=== PATIENT | male | born 1990 | race Caucasian/White ===

== ENCOUNTER 2021-12-11 01:56 | Emergency (ER) | payer MEDICAID, OTHER ==
[~2021-12-11] VITALS: Ht 188 cm; Wt 95.5 kg
[2021-12-11 01:58] VITALS: BP 144/90
[2021-12-11 02:33] LABS: CLARITY,URINE CLEAR (Clear); GLUCOSE, URINE NEGATIVE (Neg); KETONES,URINE NEGATIVE (Neg); LEUKOCYTE ESTERASE ,URINE NEGATIVE (Neg); NITRITES, URINE NEGATIVE (Neg); OCCULT BLOOD,URINE NEGATIVE (Neg); PROTEIN,URINE NEGATIVE (Neg); UROBILINOGEN,URINE 0.2 E.U/dL (0.2-1.0)
[2021-12-11 02:35] LABS: COLOR,URINE Straw (Yellow); UA COLLECTION TYPE URINAL
[2021-12-11] MEDS ORDERED: normal saline 1000ml 1,000 ML IV ONE ×2 (02:35→03:20)
[2021-12-11 02:43] LABS: URINE AMPHETAMINE SCREEN NEGATIVE (Neg); URINE BARBITUATE SCREEN NEGATIVE (Neg); URINE BENZODIAZEPINES SCREEN NEGATIVE (Neg); URINE CANNABINOID SCREEN NEGATIVE (Neg); URINE COCAINE SCREEN NEGATIVE (Neg); URINE METHADONE SCREEN NEGATIVE (Neg); URINE OPIATE SCREEN NEGATIVE (Neg); URINE PHENCYCLIDINE SCREEN NEGATIVE (Neg)
[2021-12-11 03:01] LABS: BASOPHILS # (AUTO) 0.1 X10'3 (0-0.2); BASOPHILS % (AUTO) 0.9 % (0-1); EOSINOPHILS % (AUTO) 0.1 % (0-6); HEMATOCRIT 42.5 % (42.0-52.0); HEMOGLOBIN 14.5 g/dl (14.0-17.9); LYMPHOCYTES # (AUTO) 2.1 X10'3 (1.1-4.8); LYMPHOCYTES % (AUTO) 14.8 % (21-51); MEAN CORPUSCULAR HEMOGLOBIN 29.1 PG (27.0-31.0); MEAN CORPUSCULAR HGB CONC 34.1 g/dL (33.0-36.5); MEAN CORPUSCULAR VOLUME 85.2 FL (78-98); MONOCYTES # (AUTO) 1.3 X10'3 (0-0.9); MONOCYTES % (AUTO) 9.4 % (2-12); NEUTROPHILS # (AUTO) 10.6 X10'3 (1.8-7.7); NEUTROPHILS % (AUTO) 74.8 % (42-75); PLATELET COUNT 250 X10'3 (140-440); RED BLOOD COUNT 4.99 X10'6 (4.70-6.10); RED CELL DISTRIBUTION WIDTH 12.9 % (11.5-14.5); WHITE BLOOD COUNT 14.2 X10'3 (4.5-11.0)
[2021-12-11 03:12] LABS: ALANINE AMINOTRANSFERASE 112 U/L (12-78); ALBUMIN 4.1 G/DL (3.4-5.0); ALBUMIN/GLOBULIN RATIO 1.1 (1.1-1.5); ALKALINE PHOSPHATASE 69 IU/L (46-116); ANION GAP 12 (8-16); ASPARTATE AMINO TRANSFERASE 42 U/L (10-37); BILIRUBIN,TOTAL 0.5 MG/DL (0.1-1.0); BLOOD UREA NITROGEN 19 MG/DL (7-18); BUN/CREATININE RATIO 12.9 (5.4-32.0); CALCIUM 8.4 MG/DL (8.5-10.1); CHLORIDE 99 MMOL/L (99-107); CREATINE KINASE 527 U/L (39-308); CREATININE 1.47 MG/DL (0.60-1.10); GLUCOSE 136 MG/DL (70-104); MAGNESIUM 1.6 MG/DL (1.5-2.4); SODIUM 135 MMOL/L (135-145); TOTAL CARBON DIOXIDE 23.6 MMOL/L (24-32); TOTAL PROTEIN 7.8 G/DL (6.4-8.2); eGFR 56 ML/MIN
[2021-12-11 03:16] LABS: POTASSIUM 2.9 MMOL/L (3.5-5.1)
[2021-12-11] MEDS ORDERED: potassium Cl 20 mEq SR tablet PO STA (03:19)
[2021-12-11] MEDS ORDERED: POTA-207 PO (04:28)
== END 2021-12-11 05:20 | disposition home or self-care (01) ==
LOC: ER 01:56
DX: T67.5XXA Heat exhaustion, unspecified, initial encounter (principal); R53.1 Weakness; R00.0 Tachycardia, unspecified; Z88.1 Allergy status to other antibiotic agents; Z88.8 Allergy status to other drugs, medicaments and biological substances; Z79.899 Other long term (current) drug therapy; X30.XXXA Exposure to excessive natural heat, initial encounter; Y93.89 Activity, other specified; Y92.89 Other specified places as the place of occurrence of the external cause; Y99.8 Other external cause status
CPT/HCPCS: 36415; 80053; 80305; 81003; 82550; 83735; 84145; 85025; 93005; 96360; 99284; J7030

== ENCOUNTER 2021-12-16 19:13 | Emergency (ER) | payer MEDICARE, OTHER ==
[~2021-12-16] VITALS: Ht 177.8 cm; Wt 79.5 kg
[~2021-12-16 19:13] MED LIST: POTA-207 PO
[2021-12-16 19:20] VITALS: BP 137/79
[2021-12-16] MEDS ORDERED: dexamethasone sod phosphate 10mg/ml inj PO STA (20:32)
[2021-12-16] MEDS ORDERED: PRED20TA PO (20:33)
== END 2021-12-16 20:56 | disposition home or self-care (01) ==
LOC: ER 19:13
DX: L23.7 Allergic contact dermatitis due to plants, except food (principal); Z88.1 Allergy status to other antibiotic agents; Z88.8 Allergy status to other drugs, medicaments and biological substances; Z79.899 Other long term (current) drug therapy
CPT/HCPCS: 99283; J1100

== ENCOUNTER 2022-10-23 11:27 | Emergency (ER) | payer MEDICARE ==
[~2022-10-23] VITALS: Ht 177.8 cm; Wt 75.0 kg
[2022-10-23 11:55] VITALS: BP 126/84
[2022-10-23] MEDS ORDERED: CEPH-585 PO (13:09)
[2022-10-23] MEDS ORDERED: cephalexin 250mg capsule PO ONE (13:10)
[2022-10-23] MEDS ORDERED: bacitracin 15gm ointment TP ONE (13:10)
== END 2022-10-23 13:22 | disposition home or self-care (01) ==
LOC: ER 11:28
DX: L02.213 Cutaneous abscess of chest wall (principal); Z88.0 Allergy status to penicillin; Z88.1 Allergy status to other antibiotic agents
CPT/HCPCS: 10060; 99283; 99284

== ENCOUNTER 2023-08-04 17:25 | Emergency (ER) | payer MEDICARE ==
[~2023-08-04] VITALS: Ht 172.7 cm; Wt 93.0 kg
[~2023-08-04 17:25] MED LIST changes: +CEPH-585 PO; -POTA-207 PO
[2023-08-04 17:47] VITALS: BP 138/82; PULSE 110; RESP 18; TEMP 97.8; O2SAT 98
[2023-08-04] MEDS ORDERED: CEPH-585 PO (18:33)
[2023-08-04] MEDS ORDERED: SULF1TAB49 PO (18:33)
== END 2023-08-04 18:48 | disposition home or self-care (01) ==
LOC: ER 17:27
DX: L03.116 Cellulitis of left lower limb (principal); Z88.1 Allergy status to other antibiotic agents; Z79.899 Other long term (current) drug therapy
CPT/HCPCS: 99283

== ENCOUNTER 2024-02-14 10:08 | Emergency (ER) | payer MEDICARE ==
[~2024-02-14] VITALS: Ht 175.3 cm; Wt 87.1 kg
[2024-02-14 10:16] VITALS: BP 121/79; PULSE 80; RESP 16; TEMP 98; O2SAT 98
[2024-02-14] MEDS ORDERED: NEOM10SO7 RIGHT EAR (11:19)
[2024-02-14] MEDS ORDERED: CEPH-585 PO (11:19)
== END 2024-02-14 11:28 | disposition home or self-care (01) ==
LOC: ER 10:08
DX: H60.8X2 Other otitis externa, left ear (principal); Z88.1 Allergy status to other antibiotic agents; Z79.1 Long term (current) use of non-steroidal anti-inflammatories (NSAID)
CPT/HCPCS: 99283

== ENCOUNTER 2024-02-16 00:26 | Emergency (ER) | payer MEDICARE, MEDICAID ==
[~2024-02-16] VITALS: Ht 172.7 cm; Wt 90.2 kg
[~2024-02-16 00:26] MED LIST changes: +NEOM10SO7 RIGHT EAR
[2024-02-16 00:56] VITALS: BP 140/90; PULSE 68; RESP 18; TEMP 98.6; O2SAT 96
== END 2024-02-16 00:58 | disposition home or self-care (01) ==
LOC: ER 00:27
DX: H60.8X2 Other otitis externa, left ear (principal); Z88.8 Allergy status to other drugs, medicaments and biological substances; Z79.1 Long term (current) use of non-steroidal anti-inflammatories (NSAID)
CPT/HCPCS: 99281

== ENCOUNTER 2024-10-11 16:12 | Emergency (ER) | payer MEDICARE, MEDICAID ==
[~2024-10-11] VITALS: Ht 170.2 cm; Wt 89.0 kg
[~2024-10-11 16:12] MED LIST changes: -CEPH-585 PO
[2024-10-11 16:17] VITALS: BP 147/80; PULSE 102; RESP 17; TEMP 98.2; O2SAT 98
--- NOTE | 2024-10-11 16:26 | Physician Documentation ---
HPI ~ General Chief Complaint: Medication Request Stated Complaint: BLISTER Time Seen by MD: 16:37 Primary Medical Doctor: [facility], DR. ATUL HICKS History of Present Illness HPI Comments This 34-year-old male with history of autism presents with a wound to his right middle toe, patient reports he was seen by [facility] earlier today and given wound care supplies and was told he was being prescribed an antibiotic however he has not picked it up yet, patient reports he was not prescribed anything for pain in his here requesting pain medication. Medication Reconciliation Allergies: Coded Allergies: amoxicillin (Verified Allergy, Unknown, 10/11/24) clavulanic acid (Verified Allergy, Unknown, 10/11/24) Scheduled Ibuprofen (Ibuprofen), 1 TAB PO Q8H Neomy Sulf/Polymyx B Sulf/Hc (Cortisporin Otic Solution), 4 DROP RIGHT EAR Q6H Past Medical History Past Medical History: *PSYCH* Past Surgical History: noncontributory Drug Use: none Lives with: Family Lives In: Home Occupation: disabled Review of Systems ROS Toe pain as stated above in the HPI, otherwise all systems are reviewed and negative. Physical Exam Physical Exam Vital Signs: Temperature: 98.2, Source: Oral, Heart Rate: 102, Respiratory Rate: 17, BP: 147/80, Pulse Oximetry: 98, Weight: 89.000 Oxygen Flow Rate: 0 Physical Exam VITALS: Reviewed and as above. GENERAL: Alert, nontoxic appearing, no apparent distress. RESPIRATORY: No increased work of breathing, no respiratory distress, speaking in full clear sentences SKIN: Approximately 7 mm reddened swollen area with pustular center and spontaneous drainage to the dorsal aspect of the 3rd toe of right foot Progress Results/Orders Results/Orders Completed Orders - KING CARCAMO [employer]PER[employer] Ibuprofen Tablet (Motrin Tablet) (10/11/24 16:55) Medications Received in ER Medications (Trade) Dose Ordered Sig/Hubert Route PRN Reason Start Time Stop Time Status Last Admin Dose Admin (Motrin tablet) 800 mg ONCE ONCE PO 10/11/24 16:55 10/11/24 16:56 DC 10/11/24 17:10 800 MG Vital Signs 10/11/24 16:17 Temp 98.2 Pulse 102 Resp 17 B/P (MAP) 147/80 Pulse Ox 98 O2 Flow Rate 0 Medical Decision Making Findings This is a 34-year-old male with history of autism who presents to the emergency department with pain and swelling to his right 3rd toe, physical exam is consistent with a furuncle there was not evidence of abscess or cellulitis, p kelly was seen by an urgent care and prescribed antibiotics for this. Patient presented to this ER due to concern that he did not receive pain medications for this complaint, remainder of physical exam was benign vital signs were stable and patient is appropriate for outpatient follow up to follow up previous plan from the urgent Care, patient was medicated in the department with ibuprofen and discharged with a prescription for ibuprofen. Patient provided return to care precautions and home care instructions. Differential Dx:Considerations: Include: Adverse circumstances, Psychosocial, Medical services unavail., Medication refill, Other (Cellulitis, abscess, fracture, dislocation) Departure Time of Disposition: 16:56 Disposition: 01 HOME / SELF CARE / HOMELESS Impression: Primary Impression: Furuncle of toe of right foot Condition: Improved Additional Instructions: Please follow your previous discharge instructions from [facility], take all the antibiotics they prescribed and follow up up with them in a few days for wound recheck. Please use the prescribed ibuprofen as needed for pain up to 3 times a day, take the ibuprofen with food to avoid stomach upset. Please follow up with your primary care provider in the next few days. Please return to the emergency department for any new or worsening concerning symptoms including but not limited to increased pain, swelling, or redness to your toes or feet or if you develop a fever over 100.4 that does not lower with ibuprofen or Tylenol. Referrals: NO PRIMARY CARE PROVIDER (PCP) Prescriptions Ibuprofen (Ibuprofen) 800 Mg Tablet 1 TAB PO Q8H for pain for 10 Days, #30 TAB 0 Refills Prov: KING CARCAMO 10/11/24 Education Educated: Patient Educated regarding: diagnosis, treatment, prognosis, need for follow up Signature Scribe Signature: No scribe Attestation: The note accurately reflects work and decisions made by me.GEORGETTE Maloney 10/11/24 22:25 KING CARCAMO Oct 11, 2024 16:26
[2024-10-11] MEDS ORDERED: IBUP-1986 PO (16:57)
[2024-10-11] MEDS: ibuprofen tablet 400 MG TABLET PO ONE (17:10)
== END 2024-10-11 17:16 | disposition home or self-care (01) ==
LOC: ER 16:12
DX: L02.621 Furuncle of right foot (principal); Z88.0 Allergy status to penicillin
CPT/HCPCS: 99282

== ENCOUNTER 2025-04-28 02:18 | Emergency (ER) | payer MEDICARE, MEDICAID ==
[~2025-04-28] VITALS: Ht 172.7 cm; Wt 74.8 kg
[~2025-04-28 02:18] MED LIST changes: +IBUP-1986 PO
[2025-04-28 02:20] VITALS: TEMP 97.8
--- NOTE | 2025-04-28 02:28 | ELECTROCARDIOGRAPH REPORT ---
[facility] Test Date: 2025-04-28 Test Time: 02:25:43 Pat Name: SHAHAB MARTIN Department: EMERGENCY ROOM Patient ID: [facility]-[id number] Room: Gender: M Parboiler: FAROOQ : 1990 Requested By: MARCO STERN Order Number: [id number] Reading MD: Dr. HOWARD Blankenship Measurements Intervals Premier Rate: 94 P: 25 WV: 156 QRS: 23 QRSD: 93 T: 34 QT: 342 QTc: 428 Interpretive Statements Sinus rhythm Probable left atrial enlargement Electronically Signed On 04-29-2025 15:17:[address] HOWARD Blankenship Please click the below link to view image of tracing.
--- NOTE | 2025-04-28 03:44 | Physician Documentation ---
History of Present Illness ~ Chief Complaint: Palpitations Stated Complaint: ANXIETY Time Seen by MD: 03:35 [facility] PAT[facility] HPI 35-year-old male who presents with palpitations after drinking 8 energy drinks He tells me that over the course of a couple of hours he drank 8 energy drinks, all of which contain caffeine. Following this he started to feel jittery and to have palpitations. He denies frequent caffeine use. He denies this was intentional self-harm attempt. No other acute symptoms or concerns Medication Reconciliation Allergies: Coded Allergies: amoxicillin (Verified Allergy, Unknown, 10/11/24) clavulanic acid (Verified Allergy, Unknown, 10/11/24) Scheduled Ibuprofen (Ibuprofen), 1 TAB PO Q8H Neomy Sulf/Polymyx B Sulf/Hc (Cortisporin Otic Solution), 4 DROP RIGHT EAR Q6H Past Medical History Past Medical History: *PSYCH* Past Surgical History: noncontributory Drug Use: none Lives with: Family Lives In: Home Occupation: disabled Review of Systems Cardiovascular: Reports: palpitations Psychiatric: Reports: anxiety, sleeplessness Physical Exam Vital Signs: Temperature: 97.8, Heart Rate: 98, Respiratory Rate: 18, BP: 141/88, Pulse Oximetry: 99, Weight: 74.800 Physical Exam General: This is an anxious appearing young man HEENT: Atraumatic, oropharynx is moist Heart: Mild tachycardic, appears regular, heart rate increases when he appears more anxious Lungs: normal work of breathing, normal oxygen saturation on room air Neuro: Alert and oriented Psychiatric: The patient appears extremely anxious, but is cooperative Progress Results/Orders Results/Orders Completed Orders - MARCO STERN MD Stat Ekg (04/28/25 02:26) Vital Signs 04/28/25 04/28/25 02:20 03:46 Temp 97.8 Pulse 98 99 Resp 18 12 B/P (MAP) 141/88 138/89 Pulse Ox 99 99 EKG/XRAY/CT/US/VASC/MRI EKG : Additional Comment I personally interpreted the EKG and this shows: Sinus rhythm, rate 94, QTC 428, no ischemic changes Medical Decision Making Additional information obtaine: N/A Findings na Differential Dx:Considerations: Include: atrial dysrhythmia, sinus tachycardia Differential Dx:Considerations: Include anxiety/panic attack Additional Information The patient presents with palpitations after drinking multiple energy drinks. His history and exam this all consistent with using large amount of caffeine. His EKG is reassuring. He has no other dangerous findings on exam. He denies trying to hurt himself. At this time I feel he is safe for discharge home. I did offer to give him some anxiety medication but he declined. Was advised to stop using such high doses of caffeine. Departure Time of Disposition: 03:44 Disposition: 01 HOME / SELF CARE / HOMELESS Impression: Primary Impression: Use of energy drinks Additional Impression: Accidental caffeine overdose Condition: Stable Referrals: NO PRIMARY CARE PROVIDER (PCP) Education Educated: Patient Educated regarding: diagnosis, need for follow up Signature Scribe Signature: reddy Attestation: MARCO Bailon MD Apr 28, 2025 03:44
[2025-04-28 03:46] VITALS: BP 138/89; PULSE 99; RESP 12; O2SAT 99
== END 2025-04-28 03:54 | disposition home or self-care (01) ==
LOC: ER 02:19
DX: T43.611A Poisoning by caffeine, accidental (unintentional), initial encounter (principal); R00.2 Palpitations; F41.9 Anxiety disorder, unspecified; Z88.1 Allergy status to other antibiotic agents; Z79.899 Other long term (current) drug therapy; Y92.89 Other specified places as the place of occurrence of the external cause
CPT/HCPCS: 93005; 99283